=== PATIENT | male | born 1955 | race Caucasian/White ===

== ENCOUNTER 2019-11-12 09:44 | Day surgery (SDC) | payer MEDICARE, BC ==
[~2019-11-12] VITALS: Ht 182.9 cm; Wt 116.8 kg
[2019-11-12] MEDS ORDERED: HYZAAR 25 MG-101 TAB PO (10:01)
[2019-11-12] MEDS ORDERED: EFFEXOR-XR150 MG PO (10:02)
[2019-11-12] MEDS ORDERED: LIPITOR 40MG TA40 MG PO (10:02)
[2019-11-12 10:28] VITALS: BP 141/92; PULSE 68; TEMP 97.9
[2019-11-12 12:30] VITALS: BP 130/81; PULSE 74
--- NOTE | 2019-11-12 12:30 | NUR ---
Pt arrived back to room via cart with Endo RN. Pt ambulated easily to chair with 2 person touch assist. Pt awake and oriented. Recevied report from CHRISTA Cm regarding pt's status and procedure. VSS and WNL at this time. Dr. Hatch at pt's bedside reviewing procedure with pt and . Pudding and juice brought to pt per his request.
[2019-11-12 12:45] VITALS: BP 131/84; PULSE 70
--- NOTE | 2019-11-12 12:49 | NUR ---
Pt awake, alert, and oriented. He was able to successfully finish juice and pudding without c/o nausea or pain. Pt and stated that they had all questions answered by Dr. Hatch and had no further questions at this time. Pt states that he feels ready to go home.
[2019-11-12 13:00] VITALS: BP 133/85; PULSE 56
--- NOTE | 2019-11-12 13:00 | NUR ---
Pt ready to go home, and he meets criteria for discharge. Reviewed discharge information with patient and , and they express understanding and have no further concerns/questions. VSS and WNL.
== END 2019-11-12 13:13 | disposition home or self-care (01) ==
LOC: SDCO 09:44
DX: D12.0 Benign neoplasm of cecum (principal); Z80.0 Family history of malignant neoplasm of digestive organs; I10 Essential (primary) hypertension; E78.5 Hyperlipidemia, unspecified; F32.9 Major depressive disorder, single episode, unspecified; E78.00 Pure hypercholesterolemia, unspecified; Z85.820 Personal history of malignant melanoma of skin; Z85.46 Personal history of malignant neoplasm of prostate; Z90.79 Acquired absence of other genital organ(s); Z86.010 Personal history of colon polyps
CPT/HCPCS: J2704; J7030

== ENCOUNTER → 2020-07-30 | Outpatient (CLI) | payer MEDICARE, BC ==
[~2020-07-30] MED LIST: EFFEXOR-XR150 MG PO; HYZAAR 25 MG-101 TAB PO; LIPITOR 40MG TA40 MG PO
== END ==
LOC: COL.RAD
DX: Z01.812 Encounter for preprocedural laboratory examination (principal); H53.2 Diplopia; H50.012 Monocular esotropia, left eye; I10 Essential (primary) hypertension
CPT/HCPCS: A9585